=== PATIENT | male | born 1930 | race Hispanic/Latino ===

== ENCOUNTER 2018-03-18 15:57 | Inpatient (IN) | payer MEDICARE ==
[~2018-03-18 15:57] MED LIST: ISOVUE-370 76%-LOCM 1 ML ONE
[2018-03-18 16:38] LABS: #Basophils 0.1 thou/uL (0.0-0.2); #Monocytes 0.5 thou/uL (0.11-0.59); #Neutrophils 6.1 thou/uL (1.40-6.50); %Basophils 0.9 % (0.0-1.0); %Eosinophils 0.6 % (0.0-10.0); %Lymphocytes 12.9 % (21.0-51.0); %Monocytes 6.5 % (0.0-10.0); %Neutrophils 79.2 % (42.0-75.0); Hemoglobin 10.4 g/dL (14.0-18.0); Mean Corpuscular HGB CONC 32.3 g/dL (32.0-36.0); Mean Corpuscular Hemoglobin 28.7 pg (27.0-31.0); Mean Corpuscular Volume 88.7 fL (78.0-98.0); Mean Platelet Volume 7.8 fL (7.4-10.4); Platelet Count 179 thou/uL (130-400); RBC Distribution Width 12.1 % (11.5-14.5); Red Blood Cell (RBC) Count 3.63 mill/uL (4.70-6.10); White Blood Cell (WBC) Count 7.6 thou/uL (4.8-10.8)
[2018-03-18] MEDS ORDERED: Lidocaine 1% (PF) 30 ML VIAL ONE (16:40)
[2018-03-18 16:45] LABS: INR-International Normal Ratio 1.3; PTT 34.6 SEC (22.9-36.1)
[2018-03-18 17:04] LABS: Troponin I Less than 0.010 ng/mL (< 0.028)
[2018-03-18 17:05] LABS: ALT (SGPT) 17 U/L (8-55); AST (SGOT) 24 U/L (5-34); Albumin 3.4 g/dL (3.4-4.8); Alkaline Phosphatase 102 U/L (40-150); Anion Gap 11 mmol/L (10-20); BUN (Urea Nitrogen) 30 mg/dL (8.4-25.7); Bilirubin, Total 0.4 mg/dL (0.2-1.2); Calc. Creatinine Clearance 0 mL/min (70-130); Calcium 9.1 mg/dL (7.8-10.44); Carbon Dioxide 29 mmol/L (23-31); Chloride 101 mmol/L (98-107); Estimated GFR-MDRD 90; Globulin 2.9 g/dL (2.4-3.5); Glucose 128 mg/dL (83-110); Potassium 3.7 mmol/L (3.5-5.1); Protein, Total 6.3 g/dL (5.8-8.1); Sodium 137 mmol/L (136-145)
[2018-03-18 17:09] LABS: CKMB 8.7 ng/mL (0-6.6)
--- NOTE | 2018-03-18 17:34 | CT ---
CT HEAD NONCONTRAST: 03/18/18 HISTORY: Fall. Head injury. COMPARISON: No comparison. FINDINGS: There are three tiny areas of hyperdensity associated with the peripheral goncalves matter and goncalves-white junction of the left cerebral hemisphere, including the posterior medial aspect of the left frontal l obe, the left parietal lobe, and the apex of the far anterior lateral margin of the left parietal lob e. There is no mass effect or shift of midline structures. Diffuse cortical atrophy is apparent. Incr eased CSF density along the convexity of each cerebral hemisphere may represent chronic subdural hygr omas. Mild chronic ischemic small vessel disease. Skin hunter are noted at the right parietal scalp. IMPRESSION: Three tiny hyperdense foci associated with the left frontal and parietal gyri, as detailed above. In a setting of trauma, small petechial contusions are the primary consideration. Findings were called to Maile, the patient's nurse in the Emergency Department at 1721 hours. Code CR POS: [facility]
--- NOTE | 2018-03-18 17:39 | CT ---
CT CERVICAL SPINE NONCONTRAST: 03/18/18 HISTORY: Fall. Neck injury. FINDINGS: There is widening of the anterior margin of the C6-7 disc space with fracture through the anterior li gamentous ossification. Vertebral bodies are not fractured. Axially oriented fractures extend through the posterior elements bilaterally at the C6 level without displacement. Degenerative changes are present throughout the remainder of the cervical spine. No additional fractu res are apparent. IMPRESSION: Hyperextension injury at the C6-7 level with axial fractures through the C6 facets and lamina. Findings were called to Maile, the patient's nurse in the Emergency Department, at 1728 hours. Code CR POS: [facility]
[2018-03-18] MEDS ORDERED: hydrALAZINE 20 MG/ML VIAL SLOW IVP PRN (19:15)
[2018-03-18] MEDS ORDERED: Labetalol HCl 100 MG/20 ML VIAL SLOW IVP PRN (19:15)
[2018-03-18] MEDS ORDERED: Ondansetron PF 4 MG/2 ML Vial IVP PRN (19:16)
[2018-03-18] MEDS ORDERED: Ondansetron ODT 4 MG TAB PO PRN (19:16)
[2018-03-18] MEDS ORDERED: Dextrose 50% Abboject 50 ML SYRINGE SLOW IVP PRN (19:16)
[2018-03-18] MEDS ORDERED: Dextrose 5% in Water 1,000 ML IV PRN (19:16)
[2018-03-18] MEDS ORDERED: HumaLOG 300 UNITS/3 ML VIAL SC PRN (19:16)
[2018-03-18] MEDS ORDERED: traMADol HCl 50 MG TAB PO PRN (19:20)
--- NOTE | 2018-03-18 19:35 | RAD ---
CHEST ONE VIEW: 03/18/18 HISTORY: Syncope. FINDINGS: Cardiac silhouette is magnified by projection. Pulmonary vasculature unremarkable. Lungs slightly hyp erinflated with scattered areas of parenchymal scarring. Mediastinum is midline with aortic calcific ation. No lobar consolidation or evidence of pneumothorax. IMPRESSION: Atherosclerosis. No active cardiopulmonary abnormalities are otherwise demonstrated. POS: [facility]
[2018-03-18] MEDS ORDERED: Acetaminophen 500 MG TAB PO SCH ×2 (20:00→22:45)
[2018-03-18] MEDS ORDERED: Adacel (T-DAP) 0.5 ML VIAL ONE (20:26)
--- NOTE | 2018-03-18 20:26 | CT ---
CT ARTERIOGRAM NECK WITH IV CONTRAST AND 3D MIP IMAGIN03/18/18 HISTORY: Cervical spine fracture. Fall. Neck injury. FINDINGS: There is normal branching of the great vessels at the aortic arch. Scattered calcification throughout the arterial structures. Good flow into each vertebral and carotid artery. Mild calcification of eac h carotid bifurcation. No evidence of dissection or extravasation. Within the partially visualized upper chest, there is thickening of the esophageal wall diffusely. Ce rvical spine fracture is better detailed on separate dedicated CT cervical spine. IMPRESSION: Atherosclerosis. No acute vascular injury of the neck is demonstrated. POS: [facility]
[2018-03-18 20:54] LABS: Bilirubin Negative (Negative); Blood, Urine Small (Negative); Clarity CLEAR (Clear); Glucose, Urine (Dipstick) Negative (Negative); Leukocyte Negative (Negative); Nitrite Negative (Negative); Protein, Urine (Dipstick) Negative (Neg-Trace); pH, Urine 5.5 (5.0-9.0)
[2018-03-18 20:56] LABS: Bacteria/HPF None Seen HPF (None Seen); Hyaline Casts/LPF 0-3 HYALINE CAST LPF (0-3 Hyaline); Pathc Cast-AUWi Flag 0.58 (0-2.49); Squamous Epithelial 0-3 HPF (0-3); WBC/HPF 0-3 HPF (0-3)
[2018-03-18 21:26] LABS: Troponin I 0.011 ng/mL (< 0.028)
[2018-03-18] MEDS: Lactated Ringer's 1,000 ML IV SCH (23:14)
[2018-03-18] MEDS: Famotidine 20 MG TAB PO SCH (23:17)
[2018-03-18] MEDS: Gabapentin 100 MG CAP PO SCH (23:18)
--- NOTE | 2018-03-18 23:57 | HP ---
DATE OF ADMISSION: 03/18/2018 ATTENDING PHYSICIAN: Dani Velazquez M.D. TRAUMA ACTIVATION: Not applicable. HISTORY OF PRESENT ILLNESS: This is an 87-year-old gentleman who presented to [facility] status post fall via EMS. Per patient and family at bedside, patient was working outside earlier today on his tractor. They took a break and while the patient was sitting, he had sudden onset of b ilateral loss of vision which was painless and spontaneously resolved. Shortly thereafter, the patie nt stood and began walking. The patient does not remember anything after that. The patient's family states that they heard a noise. They turned around and the patient was falling. The patient did kincaid ve positive loss of consciousness for unknown period of time, estimated as minutes. Post fall, the p atient had a chief complaint of neck pain with obvious posterior head laceration. He was seen and ev aluated in the emergency room and found to have C6-C7 fracture with small frontal contusions. Neuros urgery was notified and Trauma Services was asked to admit. Upon my evaluation, the patient had a ief complaint of neck pain. There is conflicting information from the emergency room personnel [facility] or not the patient was confused upon presentation; however, upon my evaluation, the patient is a G CS of 15. ALLERGIES: None. HOME MEDICATIONS: Include atenolol 50 mg p.o. daily, finasteride 5 mg p.o. daily, metformin 500 mg p .o. b.i.d., pravastatin 20 mg p.o. daily, benazepril 20/12.5 b.i.d., ASA 81 mg daily, and Tylenol p.r .n. PAST MEDICAL HISTORY: Significant for hypertension, diabetes, colon cancer, prostate cancer. PAST SURGICAL HISTORY: Significant for colon cancer resection, prostate cancer resection and appende ctomy. SOCIAL HISTORY: The patient is a christina. Denies alcohol use. Has a remote history of tobacco use. Denies illicit drug use. FAMILY HISTORY: Noncontributory in this case. REVIEW OF SYSTEMS: A 10-point review of systems was performed and essentially negative except as ind icated in the HPI. Specifically, the patient denied fevers, chills, nausea, vomiting, chest pain, sh ortness of breath, palpitations, dizziness or previous episodes. PHYSICAL EXAMINATION: VITAL SIGNS: On evaluation, blood pressure 140/79, pulse 67, respiration rate 18, O2 saturation 98% on room air. GENERAL: Elderly appearing male in no acute distress, resting in bed. HEAD: Normocephalic. There is stellate posterior scalp laceration with hunter in place. EYES: Pupils are PERRL. Extraocular movements are intact. NECK: Supple. Trachea is midline. C-collar is in place, but is poorly fitting this was replaced wi th a [place] J collar with the assistance of the Neurosurgery PA. CHEST: Atraumatic. No tenderness to palpation. Normal work of breathing. Symmetric rise. CARDIOVASCULAR: Regular rate and rhythm, no obvious murmurs, rubs, or gallops. GASTROINTESTINAL: Abdomen is soft, nontender, nondistended. BACK: Reported as being within normal limits. Bilateral upper extremities with scattered areas of e cchymosis. Bilateral lower extremities with 2+ pitting edema to the level of the low rodriguez. NEUROLOGIC: GCS is 15. No focal deficit is noted. Strength is 5/5 in all 4 extremities and no sens ory deficit is noted. LABORATORY FINDINGS: WBC 7.6, hemoglobin 10.4, hematocrit 32.2, and platelet count 179. INR is 1.3. Sodium 137, potassium 3.7, chloride 101, carbon dioxide 29, BUN 30, creatinine 0.81, glucose 128. AST and ALT within normal limits. CK is 255. CK-MB is 8.7. Troponin less than 0.010. EKG with inc omplete right bundle branch and left anterior fascicular block, sinus rhythm. RADIOGRAPHIC FINDINGS: CT of the brain was read by Radiology as 3 hyperdense left frontal petechial contusions. CT of the C-spine read as hyperextension injury at the level of C6-C7 with axial fractur es to the C6 facet and lamina. A chest x-ray with coarse interstitial markings, mild cardiomegaly an d obvious aortic calcification. ASSESSMENT: 1. Status post fall, possible syncopal event. 2. C6-C7 injury. 3. Mild traumatic brain injury. 4. Acute traumatic pain. 5. Amaurosis fugax. 6. Abnormal electrocardiogram. 7. Bilateral pedal edema. PLAN: Admit to Trauma Services. The patient will be admitted to the telemetry floor after discussio n with Neurosurgery. Every 4 hours neuro checks. [place] J and [place] collar, [place] J on at all times and [place] collar for showers. Further plan to be delineated by neurosurgical team. Mu ltimodal pain management. Once the patient has been cleared by Neurosurgery, PT and OT. Given possi ble syncopal presentation, syncope workup to include orthostatic vital signs, echocardiogram and moscoso tid evaluation. Plan for admission was discussed with the patient and family at bedside and all ques tions were answered at the time of this dictation. The patient has been discussed with trauma attend ing.
[2018-03-19] MEDS: Ibuprofen 600 MG TAB PO SCH ×4 (00:14→20:34)
[2018-03-19] MEDS: traMADol HCl 50 MG TAB PO SCH ×5 (00:14→20:35)
[2018-03-19 02:54] VITALS: BMI 22.8
[2018-03-19] MEDS: Acetaminophen 500 MG TAB PO SCH ×4 (05:30→21:12)
[2018-03-19 06:27] LABS: #Lymphocytes 1.6 thou/uL (1.20-3.40); #Monocytes 0.6 thou/uL (0.11-0.59); #Neutrophils 4.5 thou/uL (1.40-6.50); %Eosinophils 0.5 % (0.0-10.0); %Lymphocytes 23.3 % (21.0-51.0); %Monocytes 8.7 % (0.0-10.0); %Neutrophils 67.6 % (42.0-75.0); Hemoglobin 9.8 g/dL (14.0-18.0); Mean Corpuscular HGB CONC 31.9 g/dL (32.0-36.0); Mean Corpuscular Hemoglobin 28.1 pg (27.0-31.0); Mean Corpuscular Volume 88.3 fL (78.0-98.0); Mean Platelet Volume 8.3 fL (7.4-10.4); Platelet Count 178 thou/uL (130-400); RBC Distribution Width 12.1 % (11.5-14.5); Red Blood Cell (RBC) Count 3.47 mill/uL (4.70-6.10); White Blood Cell (WBC) Count 6.7 thou/uL (4.8-10.8)
[2018-03-19 06:47] LABS: Anion Gap 11 mmol/L (10-20); BUN (Urea Nitrogen) 23 mg/dL (8.4-25.7); Calc. Creatinine Clearance 68 mL/min (70-130); Calcium 8.6 mg/dL (7.8-10.44); Carbon Dioxide 28 mmol/L (23-31); Chloride 100 mmol/L (98-107); Estimated GFR-MDRD Greater than 90; Glucose 98 mg/dL (83-110); Magnesium 1.3 mg/dL (1.6-2.6); Phosphorus 3.8 mg/dL (2.3-4.7); Potassium 3.5 mmol/L (3.5-5.1); Sodium 135 mmol/L (136-145)
[2018-03-19] MEDS ORDERED: Prevnar 13-Val Conj/PF 0.5 ML SYRINGE IM ONE (09:00)
[2018-03-19] MEDS ORDERED: Magnesium Sulfate 3 GM in Sodium Chloride 0.9% 100 ML IVPB SCH (09:15)
[2018-03-19] MEDS: Gabapentin 100 MG CAP PO SCH ×3 (09:26→20:34)
[2018-03-19] MEDS: Famotidine 20 MG TAB PO SCH ×2 (09:26→20:35)
--- NOTE | 2018-03-19 09:28 | CT ---
CT BRAIN: Date: 03/19/18 PROVIDED CLINICAL HISTORY: Follow-up intracranial hemorrhage. FINDINGS: Comparison made with the study dated 03/18/18. The ventricular system remains normal in size and morphology. Tiny scattered foci of left cerebral co nvexity subarachnoid hemorrhage are redemonstrated, stable. There is conspicuous extra-axial CSF dens ity about both cerebral convexities, which may reflect subdural hygromas or chronic subdural hematoma s. These are unchanged with respect to prior study. Chronic microvascular ischemic changes are redemo nstrated. The extracranial soft tissues and osseous structures demonstrate an unchanged CT appearance . IMPRESSION: No interval detrimental change. POS: [facility]
[2018-03-19] MEDS ORDERED: Potassium Chloride 40 MEQ in Sodium Chloride 0.9% 250 ML 250 ML IVPB SCH (09:30)
--- NOTE | 2018-03-19 11:01 | PRG ---
DATE OF SERVICE: 03/19/2018. SUBJECTIVE: Mr. Lyon this morning is comfortable in bed. He looks a little awkward uncom fortably and the collar has slid upon his chin. I will readjust that and see if we can make him more comfortable. He denies any upper extremity symptoms. His neck pain has improved quite a bit. He i s currently n.p.o. as we wait decision on conservative management versus surgical management di scussed with Dr. Carlin early this morning.
[2018-03-19] MEDS: Lactated Ringer's 1,000 ML IV SCH (11:08)
--- NOTE | 2018-03-19 11:14 | PRG ---
DATE OF SERVICE: 03/19/2018 Mr. Lyon is an 87-year-old gentleman that sustained a fall yesterday. He has fractures at C5-6 which I believe extended through all three columns. Neurologically, he is intact. He is in his bed resting comfortably with a [place] J Collar. He reports only neck pain. He reports no radicular sympt oms in the upper or lower extremities. I had a discussion with Mr. Lyon as well as two additional family members, one of which was his daughter. I have indicated to them I believe the best treatment for him would be plating along the a nterior cervical spine for additional fixation. Other options would be a collar alone versus no tito ar which I have recommended against. They are from the [place] area and other way he would benefit f rom inpatient rehabilitation following discharge from the hospital. His family indicated that he had been shuffling and less steady on his feet leading up to this current fall. They will discuss furth er amongst themselves and they wish to move forward with surgery. We will perform an anterior cervic al plating at C5-6 tomorrow. I did discuss all risks, benefits, and alternatives.
--- NOTE | 2018-03-19 18:07 | PRG ---
DATE OF SERVICE: 03/19/2018 SUBJECTIVE: This is an 87-year-old male who presented to [facility] status post fall. He sustained a C5-C6 fracture and a mild TBI. There were no acute overnight event. CT brain this morning is stable as well as his GCS. Neurosurgery has discussed both surgical and nonsurgical optio ns with the family, who are undecided at the time of my evaluation. OBJECTIVE: VITAL SIGNS: Temperature 97.6, pulse 65, respirations 14, O2 sat 92%-96% on room air, blood pressure 115/56. GENERAL: Elderly appearing male in no acute distress, resting in bed. C-collar is in place. PULMONARY: Normal work of breathing. Symmetric rise. CARDIOVASCULAR: Regular rate and rhythm. GASTROINTESTINAL: Abdomen is soft, nontender, nondistended. MUSCULOSKELETAL: Moves all extremities x4. NEUROLOGIC: No focal deficit is appreciated. LABORATORY FINDINGS: WBC 6.7, hemoglobin 9.8, hematocrit , platelet count 178. Sodium 135, pot assium 3.5, chloride 100, carbon dioxide 28, BUN 23, creatinine 0.71, glucose 98, phosphorus 3.8, and magnesium 1.3. ASSESSMENT: 1. Status post fall. 2. Possible syncopal event. 3. Acute C5-C6 fracture. 4. Traumatic brain injury. 5. Acute traumatic pain. 6. Electrolyte abnormality. PLAN: Replete abnormal electrolytes. Await final decision from family regarding surgical versus non surgical options. Per Neurosurgery's discussion with the family, the patient would likely benefit fr om a short stay in inpatient rehabilitation regardless of surgical versus nonsurgical management. Th e patient should be n.p.o. after midnight. A.M. labs. Supportive care as ordered. Plan of care was discussed with the patient at bedside. The patient was discussed with trauma attending.
[2018-03-20] MEDS: traMADol HCl 50 MG TAB PO SCH ×4 (02:57→20:20)
[2018-03-20] MEDS: Acetaminophen 500 MG TAB PO SCH ×4 (03:02→21:38)
[2018-03-20] MEDS: Ibuprofen 600 MG TAB PO SCH ×3 (03:02→20:20)
[2018-03-20] MEDS: Lactated Ringer's 1,000 ML IV SCH ×2 (03:23→20:29)
[2018-03-20 04:30] LABS: #Lymphocytes 0.5 thou/uL (1.20-3.40); #Monocytes 0.4 thou/uL (0.11-0.59); #Neutrophils 6.3 thou/uL (1.40-6.50); %Eosinophils 0.3 % (0.0-10.0); %Lymphocytes 7.5 % (21.0-51.0); %Monocytes 4.8 % (0.0-10.0); %Neutrophils 87.4 % (42.0-75.0); Hemoglobin 9.2 g/dL (14.0-18.0); Mean Corpuscular HGB CONC 31.5 g/dL (32.0-36.0); Mean Corpuscular Hemoglobin 28.2 pg (27.0-31.0); Mean Corpuscular Volume 89.5 fL (78.0-98.0); Mean Platelet Volume 8.1 fL (7.4-10.4); Platelet Count 160 thou/uL (130-400); Red Blood Cell (RBC) Count 3.27 mill/uL (4.70-6.10); White Blood Cell (WBC) Count 7.2 thou/uL (4.8-10.8)
[2018-03-20 04:45] LABS: Anion Gap 12 mmol/L (10-20); BUN (Urea Nitrogen) 22 mg/dL (8.4-25.7); Calc. Creatinine Clearance 71 mL/min (70-130); Calcium 8.6 mg/dL (7.8-10.44); Carbon Dioxide 26 mmol/L (23-31); Chloride 103 mmol/L (98-107); Estimated GFR-MDRD Greater than 90; Glucose 90 mg/dL (83-110); Phosphorus 3.9 mg/dL (2.3-4.7); Potassium 3.8 mmol/L (3.5-5.1); Sodium 137 mmol/L (136-145)
--- NOTE | 2018-03-20 07:06 | CON ---
DATE OF CONSULTATION: 03/18/2018 HISTORY OF PRESENT ILLNESS: Mr. 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 Discussing more, it appears that he did not actually witness the fall itself. Just saw , after turning around that he was just hitting the ground. The patient reports no recollection of t he events immediately preceding or thereafter for a few minutes. The son reports that the patient wa s unconscious for a minute or two and then ultimately woke back up but was somewhat confused. CT sca n was performed by the Department of the head and cervical spine. CT of the head shows some very sma ll likely densities representing what could subarachnoid hemorrhage but again these are very sm all and consequential. The patient and family does report that he takes an 81 mg aspirin daily. Ce rvical spine, he has extraordinarily poor mineralization of the visualized vertebral bones. There is a distraction type flexion injury at C5-C6 where it looks like he may have had a bridging osteophyte anteriorly that is fractured. He also has bilateral facet fractures that are minimally displaced bu t the C-spine is distracted at that C5 disk space. This could potentially represent a Chance-type fr acture. He is in an [place] collar right now at bedside but we will switch him to [facility]. He denies any significant cardiac history or stroke. He denies any previous stroke. The patient nor family re call him having one, so they are unaware of why he takes 81 mg aspirin. On examination, he has full bilateral upper and lower extremity strength. He has no sensory change t hat he can discern. He does have significant pain when changing positions in his posterior neck and shoulders but denies any radicular pain down the arms. ASSESSMENT: Cervical flexion injury and facet fractures. PLAN: At this time, the patient will be admitted to Trauma Service. We will hold him n.p.o. at [facility] and then likely make a decision on possible surgical fixation versus just conservative managemen t in the collar. This was discussed extensively with the patient and family. We will see him in the morning.
[2018-03-20] MEDS: Polyethylene Glycol 3350 17 GM Packet PO SCH (08:31)
[2018-03-20] MEDS: Senokot 8.6 MG TAB PO SCH ×2 (08:31→20:19)
[2018-03-20] MEDS: Gabapentin 100 MG CAP PO SCH ×3 (08:32→20:20)
[2018-03-20] MEDS: Famotidine 20 MG TAB PO SCH ×2 (08:36→20:20)
[2018-03-20] MEDS: Scopolamine 1.5 mg/72 hour Patch TD SCH (10:40)
--- NOTE | 2018-03-20 15:47 | PRG-2 ---
DATE OF SERVICE: 03/20/2018 RESIDENT: Cely Vargas M.D. SUPERVISING ATTENDING: Dr. Soni. SUBJECTIVE: This is an 87-year-old male status post fall, found to have a C5 through C6 fracture and a mild TBI. Overnight, the patient had one episode of vomiting after drinking orange juice. The pa tient was hemodynamically stable as well as his GCS. Neurosurgery discussed with surgical and nonsur gical options with the family, who have decided to pursue the nonsurgical option route. Patient will likely be going to inpatient rehabilitation facility. There were no acute events overnight. OBJECTIVE: VITAL SIGNS: Temperature 97.3, pulse 56, respirations 16, O2 saturation 93% on room air, BP 145/65. GENERAL: Elderly appearing male in no acute distress, resting in bed. C-collar is in place. PULMONARY: Normal work of breathing, bilateral symmetrical chest rise. CARDIOVASCULAR: Regular rate and rhythm. ABDOMEN: Soft, nontender, nondistended. MUSCULOSKELETAL: Free range of motion in all extremities x4. NEUROLOGIC: No focal deficit appreciated. LABORATORY DATA: WBC 7.2, hemoglobin 9.2, hematocrit 29.3, platelets 160, PT 16, INR 1.3. Sodium 13 7, potassium 3.8, chloride 103, calcium 8.6, phosphorus 3.9, magnesium 2.0. Echo report showed ejection fraction of 55%-60%, left atrium moderately dilated, mild mitral regurg p resent, aortic valve is sclerotic, mild tricuspid regurgitation, E/A flow reversal noted, suggestive of diastolic dysfunction. ASSESSMENT: 1. Status post fall. 2. Possible syncopal event. 3. Acute C5 through C6 fracture. 4. Traumatic brain injury. 5. Acute traumatic pain. 6. Electrolyte abnormalities. The family has decided to pursue a nonsurgical route for the patient and we will continue with C-tito ar in place. Per Neurosurgery discussion with the family, the patient would likely benefit from a sh ort stay in inpatient rehab regardless of surgical versus nonsurgical management. The family is from [place] and would like to get to the facility there as soon as possible. Supportive care as ordered . Repeat abnormal electrolytes as needed. The patient was examined and evaluated by Dr. Soni at [facility] bedside. The plan was discussed with the patient and family who were at the bedside with Dr. Soni . Patient and family are in agreement with the plan.
[2018-03-21] MEDS: traMADol HCl 50 MG TAB PO SCH ×4 (00:59→20:50)
[2018-03-21] MEDS: Ibuprofen 600 MG TAB PO SCH ×3 (03:11→20:51)
[2018-03-21] MEDS: Acetaminophen 500 MG TAB PO SCH ×5 (03:11→23:39)
[2018-03-21] MEDS: Famotidine 20 MG TAB PO SCH ×2 (08:16→20:52)
[2018-03-21] MEDS: Polyethylene Glycol 3350 17 GM Packet PO SCH (08:17)
[2018-03-21] MEDS: Gabapentin 100 MG CAP PO SCH ×3 (08:17→20:52)
[2018-03-21] MEDS: Senokot 8.6 MG TAB PO SCH ×2 (08:17→20:52)
--- NOTE | 2018-03-21 12:32 | PRG ---
DATE OF SERVICE: 03/21/2018 SUBJECTIVE: Mr. Lyon is an 87-year-old man who suffered C6-C7 fracture dislocation following a ground level fall. Cervical spine is immobilized now in a cervical collar, no operative intervention is being contemplated. This morning, the patient reports adequate pain control. His [place] coma scale is 15. He moves all extremities. He complains of occasional right shoulder pain. The pain is not constant. The pain i s not debilitating. He tolerates diet. He reports not being able to sleep very well last night, uns ure as to why. This morning, he is quite awake and alert. OBJECTIVE: VITAL SIGNS: Includes blood pressure 121/60, pulse 60, respiratory rate is 16, temperature is 97.8 d egrees Fahrenheit, oxygen saturation 92% on room air. HEENT: Reveals normocephalic and atraumatic. Pupils are equal, round, and reactive to light and acc ommodation. HEART: Reveals regular rate and rhythm. No murmurs or gallops auscultated. CHEST: Clear to auscultation bilaterally. Breathing is regular and unlabored. ABDOMEN: Soft, nontender, nondistended. EXTREMITIES: Reveals 2+ radial and pedal pulses bilaterally. No ankle edema is present. NEUROLOGIC: Reveals no focal deficits present. MUSCULOSKELETAL: Reveals 5/5 muscle strength in both upper and lower extremities bilaterally. He kincaid s no motor or sensory deficits identified. IMPRESSION: 1. Post-injury day #3, status post ground level fall. 2. C6-C7 fracture dislocation, neurologically normal. PLAN: 1. Continue with cervical spinal immobilization using a C-collar 2. Increase activity per physical and occupational therapy. The patient has been evaluated by PM&R for possible discharge to inpatient rehabilitation when bed becomes available.
[2018-03-22] MEDS: traMADol HCl 50 MG TAB PO SCH ×4 (03:57→20:45)
[2018-03-22] MEDS: Ibuprofen 600 MG TAB PO SCH ×3 (04:58→20:45)
[2018-03-22] MEDS: Acetaminophen 500 MG TAB PO SCH ×4 (04:58→22:06)
--- NOTE | 2018-03-22 07:26 | PRG ---
DATE OF SERVICE: 03/21/2018 Mr. Lyon is an 87-year-old male who sustained a cervical spine fracture. I had met with him and his family members to discuss surgical treatment and recommended anterior cervical plating for his fracture. The family has opted for nonsurgical therapy and treatment in a cervical spine collar. We will arrange appropriate followup for him in the [facility], which is where he lives. BLAINE
[2018-03-22] MEDS: Gabapentin 100 MG CAP PO SCH ×3 (08:47→20:45)
[2018-03-22] MEDS: Famotidine 20 MG TAB PO SCH ×2 (08:48→20:45)
[2018-03-22] MEDS: Senokot 8.6 MG TAB PO SCH ×2 (08:48→20:46)
[2018-03-22] MEDS: Polyethylene Glycol 3350 17 GM Packet PO SCH (08:48)
--- NOTE | 2018-03-22 15:48 | PRG ---
DATE OF SERVICE: 03/22/2018 SUBJECTIVE: Mr. Lyon is an 87-year-old man patient. The patient is post-injury day #4, status post fall where the patient sustained C6-C7 fracture or dislocation. Family had elected nonoperative management with a C-collar. This morning, the patient reports adequate pain control. He is tolerat ing a general diet. He is participating with physical and occupational therapy. Urinary output has been adequate. OBJECTIVE: VITAL SIGNS: This morning includes blood pressure 150/66, pulse 67, respiratory rate is 16, temperat ure 98.2 degrees Fahrenheit, oxygen saturation 96% on 2 liters by nasal cannula oxygen. HEENT: Pupils equal, round, and reactive to light and accommodation. HEART: Reveals regular rate and rhythm, no murmurs or gallops auscultated. CHEST: Clear to auscultation bilaterally. Breathing is regular and unlabored. ABDOMEN: Soft, nontender, nondistended. EXTREMITIES: Reveals 2+ radial and pedal pulses bilaterally. He has no ankle edema present. NEUROLOGIC: Reveals no focal deficits present. IMPRESSION: 1. Post-injury day #4 status post ground level fall. 2. C6-C7 fracture dislocation, neurologically stable. PLAN: The patient is certainly hemodynamically stable for transfer to inpatient rehabilitation once a bed becomes available. Findings and plan discussed with the patient and daughter at bedside. They all indicated understanding of information given. I have answered their questions.
[2018-03-23] MEDS: traMADol HCl 50 MG TAB PO SCH ×2 (02:48→08:46)
[2018-03-23] MEDS: Ibuprofen 600 MG TAB PO SCH ×2 (04:13→13:30)
[2018-03-23] MEDS: Acetaminophen 500 MG TAB PO SCH ×2 (04:14→10:46)
[2018-03-23 07:49] VITALS: TEMP 97.9
[2018-03-23] MEDS: Polyethylene Glycol 3350 17 GM Packet PO SCH (08:44)
[2018-03-23] MEDS: Scopolamine 1.5 mg/72 hour Patch TD SCH (08:44)
[2018-03-23] MEDS: Senokot 8.6 MG TAB PO SCH (08:45)
[2018-03-23] MEDS: Famotidine 20 MG TAB PO SCH (08:46)
[2018-03-23] MEDS: Gabapentin 100 MG CAP PO SCH (08:46)
[2018-03-23] MEDS ORDERED: Aspirin 81 mg Enteric Coated Tablet PO SCH (09:00)
--- NOTE | 2018-03-23 11:33 | DIS-2 ---
DATE OF ADMISSION: 03/18/2018 DATE OF DISCHARGE: 03/23/2018 RESIDENT: Dr. Cely Vargas SUPERVISING ATTENDING: Dr. Sushant Soni CONSULTATIONS: Case management, Neurosurgery, PT/OT, [facility] Orthotics/ Prosthetic. PROCEDURES: None. DISCHARGE MEDICATIONS: 1. Acetaminophen (tylenol extra strength) 1000mg oral q6hrs 2. Aspirin 82 mg oral twice daily 3. Gabapentin (neurontin) 100mg oral TID 4. Ibuprofen (motrin) 600mg oral q8hrs 6. Tramadol (Ultram) 50mg q6hrs 7. Metformin 1 tab oral twice daily 8. Pravastatin 1 tab oral daily PRIMARY DIAGNOSES: C6-C7 fracture dislocation, neurologically stable status post ground level fall. SECONDARY DIAGNOSES: Hypertension, diabetes, colon cancer, prostate cancer. HISTORY OF PRESENT ILLNESS/HOSPITAL COURSE: This is an 87-year-old male who presented to the ER status post fall while working outside on his tractor. The patient had a sudden onset of bilateral loss of vision which was painless and resolved spontaneously. The patient did not recall the event on presentation in the ER. The patient then had a loss of consciousness for an unknown period of time, estimated to be minutes. The patient was evaluated in the ER and found to have a C6-C7 fracture with small frontal contusions. Neurosurgery was consulted on the case. Neurosurgery discussed with the patient and his family about surgical versus nonsurgical options for the patient 's injuries. The family as well as the patient decided to pursue the conservative/nonsurgical route. The patient will remain in a collar and will be going to an inpatient rehab facility. Electrolytes were replaced as needed throughout his stay. The patient remained vitally and neurologically stable throughout his stay. Patient worked with PT/OT during his stay. He tolerated PO and had normal BM. An echocardiogram was performed on 03/19/2018 that showed an ejection fraction of 55-60% and flow reversal noted suggestive of diastolic dysfunction. Left atrium moderately dilated, mild mitral regurg present. The patient will be going to [facility] in [place] rehab facility. The patient was seen and evaluated on the day of discharge by Dr. Soni. The plan was discussed with the patient and family member at the bedside, all were in agreement. All questions asked and answered. Disposition: stable Discharge instruction: 1. Location: [facility], [place], [place] 2. Diet: Heart Healthy 3. Activity: as tolerated; patient will be continuing PT/OT at [facility] 4. Follow up with PCP in 2 weeks; Follow up with neurosurgery in 2 weeks. MTDD
[2018-03-23 12:33] VITALS: BP 156/72
--- NOTE | 2018-04-03 15:48 | EKG ---
Test Reason : ER INDICATION Blood Pressure : / mmHG Vent. Rate : 068 BPM Atrial Rate : 068 BPM P-R Int : 152 ms QRS Dur : 106 ms QT Int : 392 ms P-R-T Axes : 089 -64 056 degrees QTc Int : 416 ms Normal sinus rhythm Pulmonary disease pattern Incomplete right bundle branch block Left anterior fascicular block Abnormal ECG Confirmed by LUIS A MUÑIZ ([id number]), photograph editor YUMIKO CARTER ([id number]) on 04/03/2018 3:48:40 PM Referred By: BILLIE Confirmed By:LUIS A MUÑIZ
== END 2018-03-23 13:37 | DRG 551 ==
LOC: ERS 15:57 → 2SE 18:30
PROVIDERS: ADMIT Specialist; ATTEND Specialist
DX: S12.500A Unspecified displaced fracture of sixth cervical vertebra, initial encounter for closed fracture (principal); S06.6X1A Traumatic subarachnoid hemorrhage with loss of consciousness of 30 minutes or less, initial encounter; R40.2413 Glasgow coma scale score 13-15, at hospital admission; I10 Essential (primary) hypertension; R26.89 Other abnormalities of gait and mobility; E11.9 Type 2 diabetes mellitus without complications; R79.9 Abnormal finding of blood chemistry, unspecified; Z85.46 Personal history of malignant neoplasm of prostate; Z85.038 Personal history of other malignant neoplasm of large intestine; Z79.82 Long term (current) use of aspirin; Z79.84 Long term (current) use of oral hypoglycemic drugs; W18.30XA Fall on same level, unspecified, initial encounter; Y92.79 Other farm location as the place of occurrence of the external cause
CPT/HCPCS: 12002; 36415; 36416; 70450; 70498; 71045; 72125; 80048; 80053; 81003; 81015; 82553; 83735; 84100; 84484; 85025; 85610; 85730; 87086; 90471; 90662; 90670; 90715; 93005; 93306; G0008; G0009; G0390; G8978-GP-CM; G8979-GP-CK; G8987-GO-CL; G8988-GO-CK; J0360; J2001; J3475; J3480; J7050; L0190